=== PATIENT | female | born 1940 | race Hispanic/Latino ===

== ENCOUNTER → 2024-05-08 | Outpatient (CLI) | payer OTHER ==
--- NOTE | 2024-05-09 07:28 | HMCSR ---
APPROVED REPORT Bilateral Lower Extremity Venous Study for Venous Competence., DVT. Indications I10, R06.09 Vein Imaging CFV (R): Normal flow, augmentation and compression. No evidence of DVT. 8.3mm 1044ms of reflux. SFJ (R): Normal flow, augmentation and compression. No evidence of DVT. FEM (R): Normal flow, augmentation and compression. No evidence of DVT. POP (R): Normal flow, augmentation and compression. No evidence of DVT. DFV (R): Normal flow, augmentation and compression. No evidence of DVT. PTV (R): Normal flow, augmentation and compression. No evidence of DVT. Peroneals (R): Normal flow, augmentation and compression. No evidence of DVT. CFV (L): Normal flow, augmentation and compression. No evidence of DVT. 8.8mm 1144ms of reflux. SFJ (L): Normal flow, augmentation and compression. No evidence of DVT. FEM (L): Normal flow, augmentation and compression. No evidence of DVT. POP (L): Normal flow, augmentation and compression. No evidence of DVT. DFV (L): Normal flow, augmentation and compression. No evidence of DVT. PTV (L): Normal flow, augmentation and compression. No evidence of DVT. Peroneals (L): Normal flow, augmentation and compression. No evidence of DVT. Technologist Impression Deep veins of bilateral lower extremities appear patent and compressible without thrombus. There is venous reflux in the RCFV and LCFV Superficial venous insufficiency seen in RGSV and LGSV RGSV Junction 6.5mm 533ms thigh 3.6mm 406ms knee 3.6mm 0.0ms calf 3.4mm 0.0ms RSSV Prox 1.6mm 0.0ms Mid 1.6mm 0.0ms LGSV Junction 4.6mm 511ms thigh 2.5mm 0.0ms knee 2.8mm 0.0ms calf 2.2mm 0.0ms LSSV Prox 1.3mm 0.0ms Mid 1.8mm 0.0ms Conclusion Severe deep venous reflux noted of bilateral common femoral veins Severe superficial venous reflux of bilateral greater saphenous veins Consider formal venography with intravascular ultrasound if iliac vein compression is suspected Conclusion Severe deep venous reflux noted of bilateral common femoral veins Severe superficial venous reflux of bilateral greater saphenous veins Consider formal venography with intravascular ultrasound if iliac vein compression is suspected
== END | disposition home or self-care (01) ==
LOC: SHCH 13:35
PROVIDERS: ATTEND Internal Medicine Cardiovascular Disease
DX: I87.2 Venous insufficiency (chronic) (peripheral) (principal); I10 Essential (primary) hypertension; R06.09 Other forms of dyspnea
CPT/HCPCS: 93306; 93970

== ENCOUNTER → 2024-07-12 | Outpatient (CLI) | payer OTHER ==
[2024-07-12] MEDS: REGADENOSON 0.4 MG/5 ML PF SYG IVP ONE (15:32)
== END | disposition home or self-care (01) ==
LOC: SHCH 08:31
PROVIDERS: ATTEND Internal Medicine Cardiovascular Disease
DX: I20.0 Unstable angina (principal)
CPT/HCPCS: 78452; 93017; J2785; A9500 ×2

== ENCOUNTER → 2024-08-01 | Outpatient (CLI) | payer OTHER ==
--- NOTE | 2024-08-01 15:12 | HMCIMG ---
Exam Type: CT HEAD/BRAIN W/O CONTRAST Clinical Information: Dizziness and giddiness Comparison: None CT Dose Index (CTDI): 57.33 mGy Dose Length Product (DLP): 956.79 total mGy-cm Findings: There is low attenuation throughout the periventricular white matter locations, consistent with chronic small vessel ischemic changes. No acute intra- or extra-axial fluid collections are seen. There is no evidence of acute or chronic hemorrhage. There is no mass effect or shift of midline structures. There are no areas to suggest acute infarct. The skull windows show no significant abnormalities. IMPRESSION: 1. CHRONIC SMALL VESSEL ISCHEMIC CHANGES.
== END | disposition home or self-care (01) ==
LOC: RAH 14:00
PROVIDERS: ATTEND Student in an Organized Health Care Education/Training Program
DX: I67.82 Cerebral ischemia (principal); R42 Dizziness and giddiness
CPT/HCPCS: 70450